=== PATIENT | male | born 1965 | race Caucasian/White ===

== ENCOUNTER 2016-09-27 09:35 | Outpatient (CLI) | payer OTHER ==
[2016-09-27 18:52] LABS: BASOPHILS # (AUTO) 0.1 10^3/uL (0.0-0.1); BASOPHILS % (AUTO) 0.9 %; EOSINOPHILS # (AUTO) 0.2 10^3/uL (0.0-0.7); EOSINOPHILS % (AUTO) 3.1 %; HCT - HEMATOCRIT 48.3 % (42.0-52.0); LYMPHOCYTES # (AUTO) 1.6 10^3/uL (1.5-3.5); LYMPHOCYTES % (AUTO) 22.2 %; MEAN CORPUSCULAR HEMOGLOBIN 30.2 pg (27.0-31.0); MEAN CORPUSCULAR HGB CONC 33.1 g/dL (32.0-36.0); MEAN CORPUSCULAR VOLUME 91.5 fL (80.0-94.0); MONOCYTES # (AUTO) 0.4 10^3/uL (0.0-1.0); MONOCYTES % (AUTO) 5.2 %; NEUTROPHILS # (AUTO) 4.8 10^3/uL (1.5-6.6); NEUTROPHILS % (AUTO) 68.6 %; RED BLOOD COUNT 5.28 10^6/uL (4.70-6.10)
[2016-09-27 19:03] LABS: ALBUMIN/GLOBULIN RATIO 1.8 (1.0-2.2); BILIRUBIN,TOTAL 0.9 mg/dL (0.2-1.0); BUN - BLOOD UREA NITROGEN 15 mg/dL (6-20); CALCIUM 8.8 mg/dL (8.5-10.3); CARBON DIOXIDE - CO2 23 mmol/L (21-32); CHLORIDE 106 mmol/L (101-111); CREATININE 0.9 mg/dL (0.6-1.2); GFR - MDRD 90 (>89); GLUCOSE 121 mg/dL (70-100); LIPASE 61 U/L (22-51); POTASSIUM 4.2 mmol/L (3.5-5.0); SODIUM 138 mmol/L (135-145); TOTAL PROTEIN 7.1 g/dL (6.7-8.2)
[2016-09-27 19:30] LABS: BILIRUBIN,URINE NEGATIVE (NEGATIVE)
[2016-09-27 19:31] LABS: THYROID STIMULATING HORMONE 1.41 uIU/mL (0.34-5.60)
[2016-09-27 20:02] LABS: H. PYLORI IGG ANTIBODY POSITIVE (Negative); HPYLORI NEG QC Negative (Negative); HPYLORI POS QC POSITIVE (Positive)
[2016-09-27 20:12] LABS: WBC,URINE 0-3 /HPF (0-3)
== END 2016-09-27 09:36 | disposition home or self-care (01) ==
LOC: LAB.F 09:35
PROVIDERS: ATTEND Internal Medicine
DX: R10.9 Unspecified abdominal pain (principal); R20.2 Paresthesia of skin
CPT/HCPCS: 36415; 80053; 81001; 82607; 83690; 84443; 85025; 85651; 86140; 87339

== ENCOUNTER 2016-10-05 07:22 | Outpatient (CLI) | payer OTHER ==
--- NOTE | 2016-10-05 10:09 | Ultrasound Report ---
COMPLETE ABDOMINAL ULTRASOUND: 10/05/2016 CLINICAL INDICATION: Chronic pain. TECHNIQUE: Real-time scanning was performed with medical service representative static images obtained. FINDINGS: The liver measures 18.2 cm. Hepatic echogenicity is increased, compatible with fatty infi ltration. No focal parenchymal lesion or intrahepatic biliary dilatation is seen. The common bile d uct measures 5 mm. The gallbladder is normal, as is the visualized pancreas. The kidneys are normal , with the right measuring 11.0 cm and the left measuring 12.1 cm. The spleen measures 11.5 cm, and appears unremarkable. The abdominal aorta is normal in caliber. The inferior vena cava is unremarka ble. No free fluid is present. IMPRESSION: FATTY INFILTRATION OF THE LIVER. OTHERWISE, NORMAL ABDOMINAL ULTRASOUND. JOB #: [id number] EXT JOB #:[id number]
== END 2016-10-05 07:23 | disposition home or self-care (01) ==
LOC: DI 07:22
PROVIDERS: ATTEND Internal Medicine
DX: R10.9 Unspecified abdominal pain (principal); G89.29 Other chronic pain; K76.0 Fatty (change of) liver, not elsewhere classified
CPT/HCPCS: 76700

== ENCOUNTER 2017-01-03 10:11 | Outpatient (CLI) | payer OTHER ==
--- NOTE | 2017-01-03 12:46 | XRAY Report ---
COMPLETE CERVICAL SPINE: 01/03/2017 CLINICAL INDICATION: Strain, radiculopathy. FINDINGS: AP, lateral, oblique, odontoid views of the cervical spine demonstrate no evidence of frac ture or subluxation. Alignment is normal. The disk spaces are preserved. No osseous neural foramin al narrowing is seen. The prevertebral soft tissues are unremarkable. IMPRESSION: NORMAL CERVICAL SPINE. JOB #: [id number] EXT JOB #:[id number]
== END 2017-01-03 10:12 | disposition home or self-care (01) ==
LOC: DI.S 10:11
PROVIDERS: ATTEND Physician Assistant Medical
DX: S16.1XXA Strain of muscle, fascia and tendon at neck level, initial encounter (principal)
CPT/HCPCS: 72050

== ENCOUNTER 2019-01-30 19:51 | Emergency (ER) | payer OTHER ==
[2019-01-30 20:02] VITALS: BP 147/88
--- NOTE | 2019-01-30 20:14 | ED Physician Documentation ---
History of Present Illness - Stated complaint Stated Complaint: INGESTED TOOTHPIC - Chief complaint Chief Complaint: General - History obtained from History obtained from: Patient - History of Present Illness Timing: Today (About an hour and a half ago he was eating a burrito, there was half a toothpick that he swallowed. He has kind of a raw sensation in his throat but no chest or abdominal pain.) Review of Systems Constitutional: reports: Reviewed and negative Cardiac: reports: Reviewed and negative Respiratory: reports: Reviewed and negative PD PAST MEDICAL HISTORY - Past Medical History Past Medical History: No - Past Surgical History Past Surgical History: No - Allergies Allergies/Adverse Reactions: Allergies Allergy/AdvReac Type Severity Reaction Status Date / Time No Known Drug Allergies Allergy Verified 01/30/19 20:01 - Social History Does the pt smoke?: No Smoking Status: Never smoker Does the pt drink ETOH?: No Does the pt have substance abuse?: No - Immunizations Immunizations are current?: Yes - POLST Patient has POLST: No PD ED PE NORMAL - Vitals Vital signs reviewed: Yes - General General: Alert and oriented X 3, No acute distress - HEENT HEENT: Other (Visualized portions of the oropharynx are normal) - Neck Neck: Supple, no meningeal sign, No bony TTP - Abdomen Abdomen: Non tender - Neuro Neuro: Alert and oriented X 3, Normal speech Results - Vitals Vitals: Vital Signs - 24 hr 01/30/19 19:54 Temperature 37.0 C Heart Rate 75 Respiratory 17 Rate Blood Pressure 147/88 H O2 Saturation 99 Oxygen O2 Source Room air PD MEDICAL DECISION MAKING - ED course ED course: 53-year-old gentleman who swallowed a half of a toothpick. His phonation is normal and no severe symptoms. Watchful waiting was advised. Departure - Departure Disposition: 01 Home, Self Care Clinical Impression: Swallowed foreign body Qualifiers: Encounter type: initial encounter Qualified Code(s): T18.9XXA - Foreign body of alimentary tract, part unspecified, initial encounter Condition: Good Record reviewed to determine appropriate education?: Yes Instructions: ED Foreign Body Swallowed Adult Comments: Return immediately for severe pain, follow-up with an ear nose and throat physician through [facility] if symptoms are persistent for more than about 48 hours. Discharge Date/Time: 01/30/19 20:19
== END 2019-01-30 20:19 | disposition home or self-care (01) ==
LOC: ED 19:51
DX: T18.9XXA Foreign body of alimentary tract, part unspecified, initial encounter (principal); X58.XXXA Exposure to other specified factors, initial encounter
CPT/HCPCS: 99282; 99283

== ENCOUNTER 2020-11-23 13:34 | Outpatient (CLI) | payer OTHER | END 2020-11-23 13:35 | disposition home or self-care (01) | LOC: COV 13:34 | PROVIDERS: ATTEND Family Medicine | DX: R05.9 Cough, unspecified (principal); R06.02 Shortness of breath; R53.83 Other fatigue; R68.83 Chills (without fever); R07.0 Pain in throat; R43.9 Unspecified disturbances of smell and taste; R09.81 Nasal congestion; J34.89 Other specified disorders of nose and nasal sinuses; Z20.822 Contact with and (suspected) exposure to COVID-19 ==